=== PATIENT | male | born 1975 | race Caucasian/White ===

== ENCOUNTER 2020-01-24 12:00 | Outpatient (CLI) | payer SELFPAY | END 2020-01-24 12:01 | disposition home or self-care (01) | LOC: SLEEP 01-25 09:58 | PROVIDERS: PCP Family Medicine; Visit Provider Family Medicine | DX: G47.10 Hypersomnia, unspecified (principal) | CPT/HCPCS: G0399 ==

== ENCOUNTER 2022-04-16 12:01 | Outpatient (CLI) | payer OTHER, SELFPAY ==
--- NOTE | 2022-04-16 12:13 | ECG_ITS ---
[facility] Test Date: 2022-04-16 Pat Name: Chucky Masterson Department: Room: Gender: Male Rn Critical Care: Anjali Arnold : 1975 Requested By: Abrahan Caabn Order Number: [id number] Edwige MD: Edmundo Delarosa M.D. Interpretive Statements NAME OF STUDY: TREADMILL STRESS TEST INDICATION: [Intermittent CP, ] EXERCISE DATA: The patient was exercised by Trae protocol. Baseline heart rate was 65 beats per minute. Baseline blood pressure was 119/84 millimeters of mercury. Target heart rate was 148 beats per minute. Maximum heart rate achieved was 168 which was 113% of the target heart rate. Maximum blood pressure was 153/94 millimeters of mercury. Total exercise time was 10 minutes 26 seconds. Maximum METs achieved was 13.5 The reason for ending the test was maximal effort achieved. The patient complained of shortness of breath during the stress test, which then resolved at the end of the test. ELECTROCARDIOGRAM: BASELINE: Showed sinus rhythm, normal axis, no significant ST-T changes at the baseline noted. [] EXERCISE: At the peak exercise level, [] No significant ST-T changes suggestive of ischemia noted. [] RECOVERY: During the recovery period, heart rate dropped appropriately. No significant ST-T changes in the recovery suggestive of ischemia noted. [] CONCLUSION: 1. Exercise capacity excellent 2. Heart rate response was appropriate 3. Blood pressure response was normal 4. Symptoms not suggestive of ischemia. 5. Stress test is normal with no evidence of ischemia Electronically Signed On 04-27-2022 20:30:39 CASH APPLICATION REPRESENTATIVE by Edmundo Delarosa M.D. [id number]
[2022-04-16 12:59] VITALS: BMI 37.6
[2022-04-16 13:38] VITALS: BP 112/82; PULSE 98
== END 2022-04-16 12:02 | disposition home or self-care (01) ==
PROVIDERS: PCP Family Medicine; Visit Provider Family Medicine
DX: R07.9 Chest pain, unspecified (principal)
CPT/HCPCS: 93017